=== PATIENT | male | born 1975 | race African-American/Black ===

== ENCOUNTER 2017-10-06 14:48 | Emergency (ER) | payer SELFPAY ==
[~2017-10-06] VITALS: Ht 188 cm; Wt 102.3 kg
[2017-10-06 14:51] VITALS: Ht 188 cm; Wt 102.3 kg
[2017-10-06] MEDS ORDERED: GLAUCOMA DROPS (14:53)
[2017-10-06 15:23] LABS: BASOPHILS 0.5 % (0-2); HEMATOCRIT 48.8 % (42.0-54.0); HEMOGLOBIN 16.4 g/dL (13.5-17.5); IMMATURE GRANULOCYTES 0.3 % (0-5); LYMPHOCYTES 31.9 % (15-50); MCHC 33.6 g/dL (31.0-37.0); MCV 86.2 fL (80.0-100.0); MEAN PLATELET VOLUME 9.4 fL (7.4-10.4); MONOCYTES 5.6 % (2-11); NEUTROPHILS 58.7 % (40-80); PLATELET COUNT 185 10x3/uL (130-400); RBC 5.66 10x6/uL (4.20-6.10); RDW 14.3 % (11.5-14.5); WBC 10.2 10x3/uL (4.8-10.8)
[2017-10-06 15:43] LABS: ALBUMIN 3.4 g/dL (3.4-5.0); ALKALINE PHOSPHATASE 56 U/L (46-116); ALT (SGPT) 29 U/L (10-68); AMYLASE - SERUM 107 U/L (25-115); BILIRUBIN - TOTAL 0.29 mg/dL (0.2-1.3); CALC OSMOLALITY 276 mosm/kg (275-300); CALCIUM 8.6 mg/dL (8.5-10.1); CARBON DIOXIDE 31.8 mmol/L (21.0-32.0); CHLORIDE - SERUM 103 mmol/L (98-107); CREATININE - SERUM 1.1 mg/dL (0.6-1.3); GLUCOSE 124 mg/dL (74-106); LIPASE 106 U/L (73-393); POTASSIUM - SERUM 3.9 mmol/L (3.5-5.1); PROTEIN - SERUM 7.2 g/dL (6.4-8.2); SODIUM 137 mmol/L (136-145); UREA NITROGEN 17 mg/dL (7-18); eGFR NON AFRICAN AMERICAN 78 mL/min (90-120)
[2017-10-06 16:17] LABS: APPEARANCE CLEAR (CLEAR); COLOR YELLOW (YELLOW); SPECIFIC GRAVITY 1.015 (1.005-1.020)
[2017-10-06 16:18] LABS: BILIRUBIN NEGATIVE (NEGATIVE); GLUCOSE NEGATIVE (NEGATIVE); KETONE NEGATIVE (NEGATIVE); NITRITE NEGATIVE (NEGATIVE); PROTEIN NEGATIVE (NEGATIVE); UROBILINOGEN NORMAL (NORMAL)
[2017-10-06] MEDS ORDERED: ZOFRAN4 MG PO (17:05)
[2017-10-06] MEDS ORDERED: PROTONIX40 MG PO (17:05)
[2017-10-06 17:23] VITALS: BP 132/74
== END 2017-10-06 17:24 | disposition home or self-care (01) ==
LOC: D.ER 14:48
PROVIDERS: Family Medicine
DX: R10.9 Unspecified abdominal pain (principal); K42.9 Umbilical hernia without obstruction or gangrene; R11.10 Vomiting, unspecified; F17.200 Nicotine dependence, unspecified, uncomplicated

== ENCOUNTER → 2018-04-13 13:54 | Outpatient (CLI) | payer OTHER ==
[2017-10-06 14:51] VITALS: BMI 28.9
[~2018-04-13 13:54] MED LIST: GLAUCOMA DROPS; PROTONIX40 MG PO; ZOFRAN4 MG PO
== END | disposition home or self-care (01) ==
LOC: D.RT 13:54
DX: Z02.71 Encounter for disability determination (principal)